=== PATIENT | male | born 1980 | race Caucasian/White ===

== ENCOUNTER → 2023-10-16 13:20 | Outpatient (REF) | payer BC, SELFPAY | LOC: HWRAD 13:20 | PROVIDERS: ATTENDING PHYSICIAN Family Medicine | DX: K90.0 Celiac disease (principal); K82.4 Cholesterolosis of gallbladder; R10.12 Left upper quadrant pain | CPT/HCPCS: 74177; Q9967 ==

== ENCOUNTER 2025-02-09 06:29 | Day surgery (SDC) | payer BC, SELFPAY | END 2025-02-09 12:11 | disposition home or self-care (01) | LOC: GI 06:29 | PROVIDERS: ATTENDING PHYSICIAN Internal Medicine Gastroenterology | DX: R12 Heartburn (principal); K22.89 Other specified disease of esophagus; K44.9 Diaphragmatic hernia without obstruction or gangrene; K31.89 Other diseases of stomach and duodenum; K22.70 Barrett's esophagus without dysplasia; K90.0 Celiac disease; Z87.19 Personal history of other diseases of the digestive system | CPT/HCPCS: 43239; 88305; 88342 ==